=== PATIENT | male | born 1945 | race Caucasian/White ===

== ENCOUNTER → 2017-03-13 | Day surgery (SDC) | payer MEDICARE, MEDICAID ==
[~2017-03-13] VITALS: Ht 170.2 cm; Wt 71.2 kg
[~2017-03-13] MED LIST: AMARYL2 MG PO; ASPIRIN325 MG PO; DIFLUCAN100 MG PO; FLOMAX0.4 MG PO; GLUCOPHAGE500 MG PO; KEFLEX500 MG PO; LOMOTIL1 TAB PO; LOTENSIN10 MG PO; NORVASC5 MG PO; OMEPRAZOLE40 MG PO; PRAVACHOL80 MG PO; SINGULAIR10 MG PO; SYMBICORT 16010.2 GM INH; TRESIBA FL100 UNIT/1 SUB-Q; TRULICITY1.5 MG/0.5 SUB-Q; TYLENOL325 MG PO; VITAMIN D-40400 UNIT PO; ZOLOFT100 MG PO
== END | disposition disaster alternative care site (69) ==
LOC: GPOC 03-08 09:00 → GEND 07:22 → GPOC 07:30
PROC: 0DB68ZX Excision of Stomach, Via Natural or Artificial Opening Endoscopic, Diagnostic (ICD-10-PCS; principal; 2017-03-13)
DX: K31.7 Polyp of stomach and duodenum (principal); F79 Unspecified intellectual disabilities; E11.9 Type 2 diabetes mellitus without complications; K21.9 Gastro-esophageal reflux disease without esophagitis; F32.9 Major depressive disorder, single episode, unspecified; E78.00 Pure hypercholesterolemia, unspecified; I10 Essential (primary) hypertension; J44.9 Chronic obstructive pulmonary disease, unspecified; Z96.659 Presence of unspecified artificial knee joint; Z98.890 Other specified postprocedural states; Z79.4 Long term (current) use of insulin; Z79.82 Long term (current) use of aspirin; Z79.891 Long term (current) use of opiate analgesic; Z79.899 Other long term (current) drug therapy
CPT/HCPCS: J2001; J7030

== ENCOUNTER → 2017-04-24 | Day surgery (SDC) | payer MEDICARE, MEDICAID | END | disposition disaster alternative care site (69) | LOC: GPOC 04-19 08:00 → GEND 06:53 | PROC: 0DJ08ZZ Inspection of Upper Intestinal Tract, Via Natural or Artificial Opening Endoscopic (ICD-10-PCS; principal; 2017-04-24) | DX: K44.9 Diaphragmatic hernia without obstruction or gangrene (principal); I10 Essential (primary) hypertension; E78.00 Pure hypercholesterolemia, unspecified; E11.9 Type 2 diabetes mellitus without complications; F32.9 Major depressive disorder, single episode, unspecified; N40.0 Benign prostatic hyperplasia without lower urinary tract symptoms; Z79.4 Long term (current) use of insulin; Z90.49 Acquired absence of other specified parts of digestive tract; Z98.890 Other specified postprocedural states | CPT/HCPCS: J2001; J7030 ==